=== PATIENT | female | born 1965 | race Caucasian/White ===

== ENCOUNTER 2017-05-12 03:18 | Inpatient (IN) | payer BC ==
[2017-05-12] MEDS ORDERED: Heparin VIAL(*) 5000 UNITS/ML VIAL (FIVE THOUSAND) ONE (03:29)
[2017-05-12] MEDS ORDERED: Aspirin Low Dose CHEW TAB* 81 MG PO ONE (03:36)
[2017-05-12] MEDS ORDERED: Morphine INJ* 2 MG/ML 1 ML SYRINGE IV ONE (03:36)
[2017-05-12] MEDS ORDERED: Heparin for STEMI(*) 5,000 UNITS/ML 1 ML VIAL IV ONE (03:38)
[2017-05-12] MEDS ORDERED: Morphine INJ* 2 MG/ML 1 ML SYRINGE ONE (03:38)
[2017-05-12 03:48] LABS: Hematocrit 44 % (35-47); Mean Corpuscular HGB Conc 34 g/dl (31-36); Mean Corpuscular Hemoglobin 33 pg (27-31); Mean Corpuscular Volume 97 fL (80-97); Mean Platelet Volume 8 um3 (7.4-10.4); Red Blood Count 4.52 10^6/ul (4.0-5.4); Red Cell Distribution Width 14 % (10.5-15); White Blood Count 17.4 10^3/ul (3.5-10.8)
[2017-05-12] MEDS ORDERED: Heparin(*) 1000 UNIT/ML 10 ML VIAL CATH LAB IV ONE (03:55)
[2017-05-12] MEDS ORDERED: Midazolam* 1 MG/ML 5 ML VIAL (5 MG) ONE (03:55)
[2017-05-12] MEDS ORDERED: VERAPAMIL 2.5 MG/ML 4 ML VIAL ONE (03:55)
[2017-05-12] MEDS ORDERED: fentaNYL* 50 MCG/ML 2 ML VIAL (100 MCG VIAL) ONE (03:55)
[2017-05-12] MEDS ORDERED: Heparin 2 UNITS/ML IVPREMIX* 2,000 ML IV ONE (03:56)
[2017-05-12] MEDS ORDERED: Iohexol 350 (CONTRAST) 200 ML MDV IV ONE (03:56)
[2017-05-12] MEDS ORDERED: nitroGLYCERIN DRIP* 250 ML ONE (03:56)
[2017-05-12] MEDS ORDERED: Lidocaine 1% INJ* 10 MG/ML 30 ML SDV ONE (03:56)
--- NOTE | 2017-05-12 03:57 | ED ---
I, Oh,Sousama, scribed for Dhaval Miller MD on 05/12/17 at 0334 . HPI Chest Pain - HPI Summary HPI Summary: This 51 y/o female presents to ED via ambulance from [place] for acute chest pain since 1600 PM yesterday afternoon. Suspected STEMI is reported from [place]. Pain radiates to arm and has been constant but waxing and waning since the onset. Positive difficulty sleeping due to pain. Pt applied thermo pad on shoulder and took Alleve without much relief. 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 Pt reports EtOH consumption 2 hours ago. - History of Current Complaint Chief Complaint: EDChestPainROMI Time Seen by Provider: 05/12/17 03:20 Hx Obtained From: Patient Onset/Duration: Started Hours Ago, Atraumatic, Still Present Timing: Constant Chest Pain Location: Diffuse Chest Pain Radiates: Yes Chest Pain Radiates To:: Arm Character: Dull/Aching Aggravating Factor(s): Nothing Alleviating Factor(s): Nothing Associated Signs and Symptoms: Positive: Chest Pain. Negative: Shortness of Breath - Allergy/Home Medications Allergies/Adverse Reactions: Allergies Allergy/AdvReac Type Severity Reaction Status Date / Time Amoxicillin [From Augmentin] Allergy Hives/Diff. Verified 05/12/17 03:35 Breathing/I tching Clavulanic Acid Allergy Hives/Diff. Verified 05/12/17 03:35 [From Augmentin] Breathing/I tching PMH/Surg Hx/FS Hx/Imm Hx Infectious Disease History: Denies: Traveled Outside the US in Last 30 Days Review of Systems Negative: Fever Positive: Chest Pain - radiating to arm Negative: Shortness Of Breath All Other Systems Reviewed And Are Negative: Yes Physical Exam Triage Information Reviewed: Yes Vital Signs Reviewed: Yes Appearance: Positive: Ill-Appearing, Pain Distress - MODERATE, Thin Skin: Positive: Warm Head/Face: Positive: Normal Head/Face Inspection Eyes: Positive: VASHTI ENT: Positive: Hearing grossly normal Neck: Positive: Supple Respiratory/Lung Sounds: Positive: Clear to Auscultation, Breath Sounds Present Cardiovascular: Positive: RRR Abdomen Description: Positive: Nontender, Soft Bowel Sounds: Positive: Present Musculoskeletal: Positive: Strength/ROM Intact Neurological: Positive: Alert, Oriented to Person Place, Time Psychiatric: Positive: Anxious Diagnostics - Laboratory Result Diagrams: 05/12/17 03:34 05/12/17 03:34 Lab Statement: Any lab studies that have been ordered have been reviewed, and results considered in the medical decision making process. 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
[2017-05-12 04:00] LABS: Troponin I 0.03 ng/mL (<0.04)
[2017-05-12 04:04] LABS: BUN/Creatinine Ratio 17.1 (8-20); EGFR African American 102.8 (>60); EGFR Non-African American 79.9 (>60); Globulin 2.8 g/dL (2-4); Potassium 3.7 mmol/L (3.5-5.0); Total Bilirubin 0.4 mg/dL (0.2-1.0); Total Protein 6.8 g/dL (6.4-8.9)
[2017-05-12] MEDS ORDERED: KCL 10 MEQ/50 ML IVPREMIX* 10 MEQ/50 ML BAG ONE (04:23)
[2017-05-12] MEDS ORDERED: Ticagrelor* 90 MG TAB PO ONE (04:35)
[2017-05-12] MEDS ORDERED: Atropine SYRINGE* 0.1 MG/ML 10 ML SYRINGE (1 MG) ONE (04:45)
[2017-05-12] MEDS ORDERED: Nitroglycerin TAB 0.4 MG* 0.4 MG TAB SL PRN (05:25)
[2017-05-12] MEDS ORDERED: oxyCODONE/Acetamin 5/325 MG* TAB PO PRN (05:28)
[2017-05-12] MEDS ORDERED: Zolpidem TAB* 5 MG PO PRN (05:28)
[2017-05-12] MEDS ORDERED: Ondansetron INJ* 2 MG/ML VIAL IV PRN (05:28)
[2017-05-12] MEDS ORDERED: Metoprolol Tartrate TAB* 25 MG PO SCH (05:29)
[2017-05-12] MEDS ORDERED: NS 0.9% 1000 ML* 1,000 ML IV SCH (05:30)
[2017-05-12 08:39] LABS: Troponin I 28.73 ng/mL (<0.04)
[2017-05-12] MEDS: Ticagrelor* 90 MG TAB PO SCH ×2 (08:54→21:02)
[2017-05-12] MEDS ORDERED: NS 0.9% IV ONE (09:00)
[2017-05-12] MEDS: Metoprolol Tartrate TAB* 25 MG PO SCH ×2 (09:02→20:57)
[2017-05-12 09:26] LABS: HDL Cholesterol 49.4 mg/dL
--- NOTE | 2017-05-12 10:40 | RAD ---
Indication: Chest pain. Single frontal view of the chest performed at 0342 hours was reviewed. No prior study is available for comparison. No mediastinal shift is noted. Heart is of normal size and configuration. Lung meza appear clear. IMPRESSION: NO ACTIVE CARDIOPULMONARY DISEASE IS NOTED.
[2017-05-12] MEDS ORDERED: Magnesium Sulfate 1 GM IV* 1 GM/100 ML BAG IV ONE (11:00)
[2017-05-12] MEDS ORDERED: KCL premix 10MEQ/50 ML x 1 TIME IV ONE (11:00)
--- NOTE | 2017-05-12 11:31 | HP ---
HISTORY AND PHYSICAL: DATE OF ADMISSION: 05/12/17 HISTORY OF PRESENT ILLNESS: A 51-year-old smoker, transferred from [place] with acute infarct. She has a long history of fibromyalgia. She has no previous cardiac history. She is a smoker. She recently moved here from [place], recently had a routine physical and routine labs, which are currently unavailable. On the day of admission, she presented to [place] ER with pain in her back radiating through to her chest. EKG there showed less than 1-mm inferior ST elevation with repolarization abnormality, potassium was low at 3.2. Labs were otherwise unremarkable. She was transferred to our ER, where EKG showed 1.[address] elevation in II, III, and aVF with reciprocal repolarization change in I, aVL, V2, and V3 with sinus bradycardia at 50 at 0323 hours. A STEMI was called. 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 PAST MEDICAL HISTORY: Notable for fibromyalgia. PREHOSPITAL MEDICATIONS: None. ALLERGIES: None. FAMILY HISTORY: Negative for premature coronary disease. SOCIAL HISTORY: She is a smoker. REVIEW OF SYSTEMS: General: No weight loss, no fever. BOOTH USHER: No history of TIA or CVA. GI: No peptic ulcer disease or bleeding. Heme: No history of malignancy or anemia. Circulatory: No claudication. Remainder of 14-point review all negative. PHYSICAL EXAMINATION VITAL SIGNS: Her initial presenting BP 164/95, heart rate 52, sinus bradycardia. HEENT: Normal without xanthelasma, scleral injection, or jaundice. EOMs normal. NECK: JVP and carotids normal. No bruit. No thyromegaly. Supple. LUNGS: Clear to percussion and auscultation. She was complaining of moderate chest discomfort. CARDIAC: Chest wall not tender. RV and apex not palpable. Normal heart sounds. No gallop, murmur, or rub. ABDOMEN: Soft, nontender. No bruit. Aorta not palpable. Liver edge is not palpable. Femoral pulses 2+. No bruits. EXTREMITIES: Radial pulses and pedal pulses normal. She had no cyanosis, clubbing, or edema. NEUROLOGIC: Cranial nerves grossly intact. SKIN: Warm and well perfused. PSYCH: Appropriately anxious. DIAGNOSTIC STUDIES/LAB DATA: Labs here: White count 17.4, hemoglobin 15, platelet count 318,000. Lactate 2.1, random blood sugar 114, creatinine 0.76 with potassium of 3.7. Lipids pending. Chest x-ray, per my review, portable film without infiltrate or heart failure. IMPRESSION: 1. Acute inferior wall ST elevation infarct, Killip Class I. She underwent emergent catheterization. 2. Tobacco use. We will encourage her not to resume smoking. 3. Fibromyalgia. [id number]/[facility] #: [id number] MTDIsrael
[2017-05-12] MEDS: LORazepam TAB(*) 1 MG PO PRN (11:44)
[2017-05-12] MEDS ORDERED: Saline NASAL DROPS 0.65%* 1 DROP BTL BOTH NARES PRN (12:51)
[2017-05-12 14:30] LABS: Troponin I 49.66 ng/mL (<0.04)
--- NOTE | 2017-05-12 15:57 | CATH ---
STENT REPORT: DATE OF PROCEDURE: 05/12/17 Primary: Dr Mendes, [facility] PROCEDURES: 1. Right radial artery access. 2. Bilateral selective coronary cineangiography, left heart catheterization, left ventriculography. 3. Stent placement RCA 2.75 x 23 Xience drug-eluting stent, post dilated to 3 mm. HISTORY: A 51-year-old smoker with acute inferior wall ST elevation infarct, transferred from [place]. 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 PROCEDURE ACCESS: Right radial artery sheath 6-F slender. MEDICATIONS: 1. Subcu lidocaine. 2. IV Versed. 3. IV fentanyl. 4. Verapamil 3 mg. 5. Nitroglycerin 300 mcg IA. 6. Heparin 3000 units IV. 7. Brilinta 180 mg p.o. loading dose. 8. Potassium 10 mEq over 1 hour IV. 9. Atropine 1 mg IV for asystole post RCA revascularization. DIAGNOSTIC CATHETERS: 5F TIG4, 5FL 3.5, 5F pigtail. After right coronary angiography, RCA intervention was performed using a 6FR4 guide with a 14 BMW wire. The mid RCA was easily crossed with the wire, stented with a 2.75 x 23 Xience drug-eluting stent, which was then post dilated with a 2.75 and then a 3.0 noncompliant balloon to 20 atmospheres 30 seconds. Left heart catheterization and left ventriculography were then performed. HEMODYNAMICS: Initial BP 156/82, LV post revascularization 88/9-15, no aortic valve gradient on pull back. Final BP 102/67. ANGIOGRAPHY: RCA: The RCA is moderate, dominant, is occluded in its mid portion , there is no distal filling. After crossing with the wire, the mid RCA stenosis is 95%, distal vessel DOMINGO 2. After stent placement and post dilatation to 3 mm there was no residual stenosis, the PDA is moderate followed by a moderate posterolateral. Distal RCA has no significant stenosis, flow is DOMINGO 3. Left main: The left main is normal with a superior take off. LAD: The LAD is moderate, extends to the apex, it supplies a small first and second diagonal. Between the two diagonals, there is a 40% relatively short stenosis. Circumflex: The circumflex is not dominant, is large with a large bifurcated marginal branch, the circumflex has no stenosis. LV Gram: There is localized inferobasal hypokinesis, estimated LVEF 55%. There is no mitral regurgitation evident. CONCLUSION: 1. One-vessel disease RCA with mid RCA occlusion with acute inferior wall ST elevation infarct. Excellent angiographic result with drug-eluting stent placement. 2. Inferobasal hypokinesis with preserved LVEF. 3. Successful right radial artery access. [id number]/[facility] #: [id number] [facility]PITALIsrael
[2017-05-12] MEDS: Atorvastatin* 80 MG TAB PO SCH (17:10)
[2017-05-12 20:18] LABS: Troponin I 34.79 ng/mL (<0.04)
[2017-05-13] MEDS: LORazepam TAB(*) 1 MG PO PRN (00:08)
[2017-05-13] MEDS: Acetaminophen TAB* 325 MG PO PRN (00:09)
[2017-05-13 05:49] LABS: BUN/Creatinine Ratio 19.2 (8-20); Calcium 8.4 mg/dL (8.6-10.3); EGFR African American 99.7 (>60); EGFR Non-African American 77.6 (>60)
[2017-05-13] MEDS: Aspirin Low Dose CHEW TAB* 81 MG PO SCH (07:58)
[2017-05-13] MEDS: Ticagrelor* 90 MG TAB PO SCH ×2 (07:58→21:17)
[2017-05-13] MEDS: Metoprolol Tartrate TAB* 25 MG PO SCH ×2 (07:58→21:23)
[2017-05-13] MEDS: Captopril TAB* 12.5 MG PO SCH ×3 (09:12→21:24)
--- NOTE | 2017-05-13 14:00 | ECHO ---
Patient: MERARY BELL Rec#: [id number] : 1965 Date: 05/13/2017 Age: 51y Height: 149.86 cm / 59.0 in Weight: 70.31 kg / 155.0 lbs Sex: F BSA: 1.65 Room#: ICU 4 Admit Date#: 05/12/2017 Type: Inpatient Referring: Tyrell Betancourt MD Reading: Uli Peterson MD Vacuum Caster: Lorna Tena RD,RDMS Transthoracic Echocardiogram Indication: STEMI BP: 132/78 HR: 50 Rhythm: Bradycardia Findings History: S/P STEMI and PCI, smoker Technical Comments: The study quality is good. Completed 1320 Left Ventricle: The left ventricular chamber size is normal. There is no left ventricular hypertrophy. There is a focal wall motion abnormality present. Left ventricular systolic function is at the lower limits of normal. The estimated ejection fraction is 45-50%. Normal left ventricular diastolic filling is observed. The mid inferior, and apical inferior wall segments are hypokinetic (score 2). The basal inferior wall segment is akinetic (score 3). Overall wallmotion score index is 2.33 Left Atrium: The left atrial chamber size is normal. Right Ventricle: The right ventricular chamber size and systolic function are within normal limits. Right Atrium: The right atrial cavity size is normal. Aortic Valve: The aortic valve is trileaflet. There is a trace of aortic regurgitation. There is no evidence of aortic stenosis. Mitral Valve: The mitral valve leaflets are mildly thickened. There is mild to moderate mitral regurgitation. There is no evidence of mitral stenosis. Tricuspid Valve: The tricuspid valve leaflets are normal. There is trace tricuspid regurgitation. Pulmonic Valve: The pulmonic valve appears normal. There is a trace pulmonic regurgitation. Pericardium: There is no significant pericardial effusion. Aorta: The aortic root appears normal. There is no dilatation of the aortic arch. Pulmonary Artery: The main pulmonary artery appears normal. Venous: The inferior vena cava appears normal in size. There is an approximate 50% respiratory change in the inferior vena cava dimension. Summary: There was not any prior study for comparison. Conclusions Left ventricular systolic function is at the lower limits of normal. The estimated ejection fraction is 45-50%. The mid inferior, and apical inferior wall segments are hypokinetic (score 2). The basal inferior wall segment is akinetic (score 3). There is a trace of aortic regurgitation. There is mild to moderate mitral regurgitation. There is trace tricuspid regurgitation. There is no significant pericardial effusion. Measurements Name Value Normal Range RVIDd (AP) 2D 2.5 cm (0.9 - 2.6) RVDdMajor (2D) 2.3 cm (2.2 - 4.4) RAd ISD 4CH 4.3 cm (3.4 - 4.9) RA (A4C)W 3.2 cm (2.9 - 4.6) IVSd (2D) 0.8 cm (0.6 - 1) LVPWd (2D) 0.9 cm (0.6 - 1) LVIDd (2D) 4.5 cm (3.6 - 5.4) LVIDs (2D) 3.2 cm - LV FS (2D) 30 % (25 - 45) Aortic Annulus 1.7 cm (1.4 - 2.6) Ao root diameter (2D) 2.7 cm (2.1 - 3.5) Ascending Ao 2.9 cm (2.1 - 3.4) Aortic arch 2.9 cm (1.8 - 3.4) LA dimension (AP) 2D 3.7 cm (2.3 - 3.8) LAd ISD 4CH 5.1 cm (2.9 - 5.3) LA ISD 4CH W 3.7 cm (2.5 - 4.5) Name Value Normal Range LA ESV SP 4CH (A/L) 33.46 ml - LA ESV SP 2CH (A/L) 37.26 ml - LA ESV BP (A/L) 35.54 ml - LA ESV BP (A/L) index 21.4 ml/m2 - LA ESV SP 4CH (MOD) 30.88 ml - LA ESV SP 2CH (MOD) 35.88 ml - Name Value Normal Range MV E-wave Vmax 0.7 m/sec - MV deceleration time 192 msec - MV A-wave Vmax 0.5 m/sec - MV E:A ratio 1.4 ratio - P. vein S-wave Vmax 0.5 m/sec - P. vein D-wave Vmax 0.2 m/sec - P. vein S:D Vmax ratio 2.6 ratio - P. vein A-wave duration 80 msec - LV septal e' Vmax 0.09 m/sec - LV lateral e' Vmax 0.08 m/sec - LV E:e' septal ratio 8 ratio - LV E:e' lateral ratio 9 ratio - Name Value Normal Range AV Vmax 1.4 m/sec - AV VTI 33.2 cm - AV peak gradient 8 mmHg - AV mean gradient 4.5 mmHg - LVOT Vmax 1.2 m/sec - LVOT VTI 23.3 cm - LVOT peak gradient 6 mmHg - LVOT mean gradient 2.4 mmHg - RAMAKRISHNA Vmax 0.7 m/sec - Name Value Normal Range MR Vmax 5.2 m/sec - MR VTI 194 cm - MR flow (PISA) 43.43 ml/sec - MR ERO 0.7 cm2 - MR PISA radius 0.44 cm - MR alias Vmax 35.34 cm/sec - Name Value Normal Range RAP 8 mmHg - IVC diameter 1.7 cm - Name Value Normal Range PV Vmax 0.6 m/sec - PV peak gradient 1.4 mmHg - Wallmotion BAS Not Seen BA Not Seen BAL Not Seen GRETCHEN Not Seen BI Akinetic BIS Not Seen MAS Not Seen MA Not Seen MAL Not Seen MIL Not Seen WA Hypokinetic MIS Not Seen Not Seen AA Not Seen AL Not Seen AI Hypokinetic APEX Not Seen
[2017-05-13] MEDS: Atorvastatin* 80 MG TAB PO SCH (17:20)
[2017-05-14] MEDS: Acetaminophen TAB* 325 MG PO PRN (01:42)
[2017-05-14 07:54] LABS: BUN/Creatinine Ratio 17.6 (8-20); Calcium 8.7 mg/dL (8.6-10.3); EGFR African American 116.9 (>60); EGFR Non-African American 90.9 (>60)
[2017-05-14] MEDS: Metoprolol Tartrate TAB* 25 MG PO SCH ×2 (07:54→22:10)
[2017-05-14] MEDS: Captopril TAB* 12.5 MG PO SCH ×3 (07:55→22:07)
[2017-05-14] MEDS: Aspirin Low Dose CHEW TAB* 81 MG PO SCH (07:55)
[2017-05-14] MEDS: Ticagrelor* 90 MG TAB PO SCH ×2 (07:56→22:08)
[2017-05-14] MEDS: Atorvastatin* 80 MG TAB PO SCH (17:15)
[2017-05-15] MEDS: Acetaminophen TAB* 325 MG PO PRN (05:05)
[2017-05-15 07:52] VITALS: BP 104/65
[2017-05-15] MEDS ORDERED: Lisinopril TAB* 5 MG PO SCH (08:00)
[2017-05-15 08:20] LABS: BUN/Creatinine Ratio 21.3 (8-20); Calcium 9.4 mg/dL (8.6-10.3); EGFR African American 104.4 (>60); EGFR Non-African American 81.1 (>60)
[2017-05-15] MEDS: Aspirin Low Dose CHEW TAB* 81 MG PO SCH (08:52)
[2017-05-15] MEDS: Metoprolol Tartrate TAB* 25 MG PO SCH (08:52)
[2017-05-15] MEDS ORDERED: Prasugrel (NF) 10 MG PO ONE (09:00)
--- NOTE | 2017-05-15 09:55 | DS ---
CC: Dr. Kay Richards, [facility]; ANGELIQUE Mar * DISCHARGE SUMMARY: DATE OF ADMISSION: 05/12/17 DATE OF DISCHARGE: 05/15/17 FINAL DIAGNOSIS: Acute inferior wall ST segment elevation, myocardial infarction, late presentation. SECONDARY DIAGNOSIS: 1. Stenotic coronary artery disease, also tobacco abuse. 2. Fibromyalgia. HOSPITAL COURSE: The patient is a 51-year-old female who was transferred from [facility] with an acute inferior wall myocardial infarction on . Please refer to the H and P for complete details, by Dr. Kay Rcihards. She was brought emergently to the cardiovascular laboratory where cardiac catheterization demonstrated a totally occluded mid right coronary artery with no distal filling. The left coronary artery had [id number] disease with a 40% stenosis between the first and second diagonal branch. The circumflex had no significant disease. LV function showed localized inferobasal hypokinesis, an EF of 55%, with no mitral regurgitation. She underwent successful intervention with stent placement with a 2.75 x 23 mm long Xience drug-eluting stent, post dilated to 3.0 mm with high pressure balloon inflation. During the hospital course, she underwent an echocardiogram on 05/13/17, which revealed an EF of 45% to 50%, with mid inferior and apical inferior segments hypokinetic, with basal inferior segment akinetic. She had [id number] mitral regurgitation and trace tricuspid regurgitation and trace aortic regurgitation. Laboratory results revealed a rapid peak of her cardiac enzymes to a CPK total of 1546, MB of 278, and troponin of 49. Her renal function remained stable throughout the course of her hospitalization. She was placed appropriately on CHARMAINE inhibition and beta nelia therapy and dual antiplatelet therapy. Her blood pressure and pulse remained low at times, which prevented titration of beta nelia therapy. She was up and about, walking, without significant symptoms, and on the day of discharge vital signs revealed blood pressure 117/64, pulse in the 50 to 60 range when she is lying in bed, afebrile, respirations 18, O2 saturation 99%. Neck was supple, without increased JVP. Carotid had good upstroke and volume without bruits. HEENT: Conjunctivae are pink. Sclerae are clear. Mouth revealed moist mucosa. Lungs revealed no accessory muscle usage. There was good excursion. Lungs were clear to A and P. Heart revealed no visible heaves. No palpable heaves or thrills. Normal S1 and S2. There was no significant systolic or diastolic murmur, could not rule out faint short systolic murmur at the left lower sternal border. Abdomen was soft, nontender, without organomegaly. Extremities: Without clubbing, cyanosis, ammy pitting edema. The right radial artery was well healed with good antegrade flow. Neuro: The patient is alert and oriented with normal mentation. Musculoskeletal: The patient with normal gait. Psychiatric: The patient had appropriate affect. LABORATORY DATA: Most recent blood work from yesterday, with this morning's blood work still pending, revealed a sodium of 138, potassium 4.0, chloride 108 , bicarb 24, BUN and creatinine of 12 and 0.68. Most recent EKG from 05/14/17, revealed sinus bradycardia, heart rate 52. IN interval is 0.14, QRS 0.09, QT 0.47, corrected. There were Q-waves in III and aVF, tiny Q-wave in lead III and V5 and V6, with T-wave inversion in II, III, aVF, and V4 through 6. MEDICATIONS: Medication list at the time of discharge: 1. Aspirin 81 mg a day. 2. Atorvastatin 80 mg a day. 3. Lisinopril 2.5 mg once a day. 4. Metoprolol tartrate 12.5 mg twice a day. 5. Nitroglycerin sublingual 0.4 mg as needed. 6. Prasugrel 10 mg daily. FOLLOWUP: The patient has a scheduled followup appointment with Dr. Kay Richards on 05/23/17 at 10:40 a.m. The patient was instructed to set up a followup appointment with her family doctor, physician news production assistant Juvencio Mendes , in order to discuss more about smoking cessation. A lengthy discussion was made with the patient regarding signs and symptoms for recurrent angina pectoris. She was given a cardiac education booklet along with her stent card, which she will bring to Dr. Richards' office visit to review. Discussion was made of cardiac rehab and she is not certain she wishes to proceed with that because of concerns about getting back to work as soon as possible. Dr. Richards will be discussing her timing of returning to work as well. [id number]/[facility] #: [id number] [facility]
[2017-05-16] MEDS ORDERED: CMCS: Prasugrel (NF) 10 MG PO SCH (09:00)
== END 2017-05-15 09:54 | disposition home or self-care (01) | DRG 174 ==
LOC: ED 03:18 → ICU 04:14 → MEDTELE 05-14 12:10
PROVIDERS: ADMIT Internal Medicine Cardiovascular Disease; ATTEND Internal Medicine Cardiovascular Disease
PROC: 3E033PZ Introduction of Platelet Inhibitor into Peripheral Vein, Percutaneous Approach (ICD-10-PCS; 2017-05-12)
PROC: B2111ZZ Fluoroscopy of Multiple Coronary Arteries using Low Osmolar Contrast (ICD-10-PCS; 2017-05-12)
PROC: 4A023N7 Measurement of Cardiac Sampling and Pressure, Left Heart, Percutaneous Approach (ICD-10-PCS; 2017-05-12)
PROC: B2151ZZ Fluoroscopy of Left Heart using Low Osmolar Contrast (ICD-10-PCS; 2017-05-12)
PROC: 027034Z Dilation of Coronary Artery, One Artery with Drug-eluting Intraluminal Device, Percutaneous Approach (ICD-10-PCS; principal; 2017-05-12 07:00)
DX: I21.19 ST elevation (STEMI) myocardial infarction involving other coronary artery of inferior wall (principal); I08.3 Combined rheumatic disorders of mitral, aortic and tricuspid valves; M79.7 Fibromyalgia; F17.200 Nicotine dependence, unspecified, uncomplicated; I25.10 Atherosclerotic heart disease of native coronary artery without angina pectoris; Z79.82 Long term (current) use of aspirin; Z88.1 Allergy status to other antibiotic agents; Z79.02 Long term (current) use of antithrombotics/antiplatelets
CPT/HCPCS: 36415; 71010; 80048; 80053; 80061; 82550; 82553; 83605; 83735; 84132; 84484; 85025; 85610; 85730; 86850; 86900; 86901; 87641; 93005; 93306; 99156; 99157; A9270-GY; C1725; C1769; C1876; C1887; C9606-RC; J0461; J1644; J2001; J2250; J2270; J3010; J3475; J3480

== ENCOUNTER 2017-07-06 14:39 | Emergency (ER) | payer BC ==
[2017-07-06 17:19] VITALS: BP 137/59
== END 2017-07-07 00:56 | disposition left against medical advice (07) ==
LOC: ED 14:39
DX: R20.0 Anesthesia of skin (principal); Z53.21 Procedure and treatment not carried out due to patient leaving prior to being seen by health care provider; R00.2 Palpitations; M79.7 Fibromyalgia; F17.210 Nicotine dependence, cigarettes, uncomplicated; F41.9 Anxiety disorder, unspecified; Z88.0 Allergy status to penicillin
CPT/HCPCS: 36415; 70450; 71020; 80053; 81003; 85027; 93005; 99281; 99282

== ENCOUNTER 2017-07-06 17:40 | Emergency (ER) | payer BC ==
[2017-07-06 19:31] LABS: Hematocrit 43 % (35-47); Hemoglobin 14.8 g/dl (12.0-16.0); Mean Corpuscular HGB Conc 34 g/dl (31-36); Mean Corpuscular Hemoglobin 33 pg (27-31); Mean Corpuscular Volume 97 fL (80-97); Mean Platelet Volume 8 um3 (7.4-10.4); Red Blood Count 4.49 10^6/ul (4.0-5.4); Red Cell Distribution Width 14 % (10.5-15)
[2017-07-06 19:41] LABS: Urine Bilirubin Negative (Negative); Urine Glucose Negative (Negative); Urine Nitrite Negative (Negative)
[2017-07-06 19:45] LABS: Albumin 4.2 g/dL (3.2-5.2); BUN/Creatinine Ratio 13.7 (8-20); Calcium 9.4 mg/dL (8.6-10.3); EGFR African American 73.2 (>60); EGFR Non-African American 56.9 (>60); Globulin 2.8 g/dL (2-4); Potassium 4.5 mmol/L (3.5-5.0); Total Bilirubin 0.4 mg/dL (0.2-1.0)
[2017-07-07 00:57] VITALS: BP 125/52
--- NOTE | 2017-07-07 06:07 | ED ---
Shwetha Washington Rebecca, scribed for Sky Norton on 07/06/17 at 2354 . Complex/Multi-Sys Presentation - HPI Summary HPI Summary: Pt is a 51 y/o F who presents to ED c/o bilateral hand and arm tingling/numbness /prickling. Pt reports that she has been experiencing tingling and numbness for multiple months though now she describes the sx as more severe in intensity and describes as "prickling." Sensation is more severe on the R side than the L. Sx aggravated and alleviated by nothing. Additionally c/o bilateral toe tingling, palpitations and fatigue. Denies CP, SOB. PMHx PR of which she reports the sx today are similar, though less severe. PMHx fibromyalgia. - History Of Current Complaint Chief Complaint: EDGeneral Time Seen by Provider: 07/06/17 21:25 Hx Obtained From: Patient Onset/Duration: Lasting Weeks - Multiple months, Still Present Severity Currently: None Location: Negative Aggravating Factor(s): Nothing Alleviating Factor(s): Nothing Associated Signs And Symptoms: Positive: Palpitations, Other - Bilateral arm and hand tingling/numbness/prickling - Allergies/Home Medications Allergies/Adverse Reactions: Allergies Allergy/AdvReac Type Severity Reaction Status Date / Time Amoxicillin [From Augmentin] Allergy Hives/Diff. Verified 07/06/17 14:53 Breathing/I tching Clavulanic Acid Allergy Hives/Diff. Verified 07/06/17 14:53 [From Augmentin] Breathing/I tching PMH/Surg Hx/FS Hx/Imm Hx Musculoskeletal History: Reports: Hx Fibromyalgia Sensory History: Reports: Hx Contacts or Glasses - Glasses used for reading Denies: Hx Hearing Aid Opthamlomology History: Reports: Hx Contacts or Glasses - Glasses used for reading Psychiatric History: Reports: Hx Anxiety Infectious Disease History: No Infectious Disease History: Denies: Traveled Outside the [place] in Last 30 Days - Family History Known Family History: Negative: Cardiac Disease - Social History Alcohol Use: Occasionally Substance Use Type: Reports: None Smoking Status (MU): Heavy Every Day Tobacco Smoker Type: Cigarettes Length of Time of Smoking/Using Tobacco: 40 years Review of Systems Positive: Fatigue Positive: Palpitations. Negative: Chest Pain Negative: Shortness Of Breath Neurological: Other - Bilateral arm and hand tingling/numbness/prickling; bilateral toe tingling All Other Systems Reviewed And Are Negative: Yes Physical Exam - Summary Physical Exam Summary: Appearance: Well appearing, no pain distress Skin: warm, dry, reflects adequate perfusion Head/face: normal Eyes: EOMI, VASHTI ENT: normal Neck: supple, nontender Respiratory: CTA, breath sounds present Cardiovascular: RRR, pulses symmetrical Abdomen: nontender, soft Bowel: present Musculoskeletal: normal, strength/ROM intact Neuro: normal, sensory motor intact, A&Ox3 Triage Information Reviewed: Yes Vital Signs On Initial Exam: Initial Vitals Temp Pulse Resp BP Pulse Ox 97.3 F 60 18 162/78 99 07/06/17 17:45 07/06/17 17:45 07/06/17 17:45 07/06/17 17:45 07/06/17 17:45 Vital Signs Reviewed: Yes - Jarad Coma Scale Best Eye Response: 4 - Spontaneous Best Motor Response: 6 - Obeys Commands Best Verbal Response: 5 - Oriented Coma Scale Total: 15 Diagnostics - Vital Signs Vital Signs Temp Pulse Resp BP Pulse Ox 07/06/17 23:07 50 12 130/63 99 07/06/17 23:00 49 21 96 07/06/17 22:00 50 16 96 07/06/17 21:32 56 14 99 07/06/17 19:26 97.7 F 54 16 132/68 100 07/06/17 17:45 97.3 F 60 18 162/78 99 - Laboratory Lab Statement: Any lab studies that have been ordered have been reviewed, and results considered in the medical decision making process. - Radiology CXR Xray Interpretation: No Acute Changes Radiology Interpretation Completed By: ED Physician - CT Brain CT CT Interpretation: No Acute Changes - No acute brain parenchymal abnormality. No hemorrhage, mass or acute territorial infarct. Clear visualized paranasal sinuses. Visualized mastoid air cells clear. ED physicain reviewed radiology report and agrees. CT Interpretation Completed By: Radiologist - EKG 0040 Cardiac Rate: Bradycardia - 46 bpm EKG Rhythm: Sinus Bradycardia EKG Interpretation: No acute changes Re-Evaluation - Re-Evaluation First Eval Re-Evaluation Time: 00:40 Comment: Discussed results with the pt. Complex Multi-Symp Course/Dx Assessment/Plan: Pt is a 51 y/o F who presents to ED c/o bilateral hand and arm tingling/numbness/prickling. Pt reports that she has been experiencing tingling and numbness for multiple months though now she describes the sx as more severe in intensity and describes as "prickling." Sensation is more severe on the R side than the L. Sx aggravated and alleviated by nothing. Additionally c/o bilateral toe tingling, palpitations and fatigue. Denies CP, SOB. PMHx PR of which she reports the sx today are similar, though less severe. PMHx fibromyalgia. Brain CT and CXR reveal no acute findings. EKG is sinus bradycardia with no acute changes. Pt will be D/C to home with Dx of palpitations with a follow up with her PCP. She understands and agrees. Allergies noted. Elevated BP noted. - Diagnoses Provider Diagnoses: Palpitations Discharge - Discharge Plan Condition: Stable Disposition: HOME Patient Education Materials: Palpitations (ED) Referrals: Session Juvencio FLYNN [Primary Care Provider] - 3 Days The documentation as recorded by the Shwetha streeter Rebecca accurately reflects the service I personally performed and the decisions made by , Sky Norton.
--- NOTE | 2017-07-07 07:34 | RAD ---
HISTORY: Dizziness COMPARISONS: May 12, 2017 VIEWS: 4: Frontal dual-energy and lateral views of the chest. FINDINGS: CARDIOMEDIASTINAL SILHOUETTE: The cardiomediastinal silhouette is normal. ANA: The ana are normal. PLEURA: The costophrenic angles are sharp. No pleural abnormalities are noted. LUNG PARENCHYMA: The lungs are clear. ABDOMEN: The upper abdomen is clear. There is no subphrenic gas. BONES AND SOFT TISSUES: No bone or soft tissue abnormalities are noted. OTHER: None. IMPRESSION: NO ACTIVE CARDIOPULMONARY DISEASE.
--- NOTE | 2017-07-07 07:35 | RAD ---
HISTORY: Dizziness COMPARISONS: None TECHNIQUE: Multiple contiguous axial CT scans were obtained of the head without intravenous contrast. FINDINGS: HEMORRHAGE/INFARCT: There is no hemorrhage or acute infarct. MASSES/SHIFT: There is no mass or shift. EXTRA-AXIAL SPACES: There are no extra-axial fluid collections. SULCI AND VENTRICLES: The sulci and ventricles are normal in size and position for the patient's stated age. CEREBRUM: There are no focal parenchymal abnormalities. BRAINSTEM: There are no focal parenchymal abnormalities. CEREBELLUM: There are no focal parenchymal abnormalities. VESSELS: The vessels are grossly normal. PARANASAL SINUSES: The paranasal sinuses are clear. ORBITS: The orbits are unremarkable. BONES AND SOFT TISSUE: No bone or soft tissue abnormalities are noted. OTHER: None IMPRESSION: NO ACUTE INTRACRANIAL PATHOLOGY.
== END 2017-07-07 00:56 | disposition home or self-care (01) ==
LOC: ED 17:40
DX: R00.2 Palpitations (principal); M79.7 Fibromyalgia; F17.210 Nicotine dependence, cigarettes, uncomplicated; F41.9 Anxiety disorder, unspecified; Z88.0 Allergy status to penicillin
CPT/HCPCS: 36415; 70450; 71020; 80053; 81003; 85027; 93005; 99282